=== PATIENT | male | born 1970 | race Caucasian/White ===

== ENCOUNTER 2021-01-20 02:01 | Emergency (ER) | payer MEDICAID ==
[~2021-01-20] VITALS: Ht 167.6 cm; Wt 72.0 kg
[2021-01-20 02:05] VITALS: BP 141/94
[2021-01-20] MEDS ORDERED: DOXYCYCLINE 100MG CAPSULE PO STA (02:22)
[2021-01-20] MEDS ORDERED: DOXY100C43 PO (02:24)
== END 2021-01-20 02:50 | disposition home or self-care (01) ==
LOC: ER 02:02
DX: L73.1 Pseudofolliculitis barbae (principal); N49.2 Inflammatory disorders of scrotum; F17.210 Nicotine dependence, cigarettes, uncomplicated; Z79.2 Long term (current) use of antibiotics
CPT/HCPCS: 99283